=== PATIENT | male | born 1965 | race African-American/Black ===

== ENCOUNTER 2023-05-02 16:06 | Outpatient (REF) | payer MEDICAID, SELFPAY ==
[2023-05-02 17:21] LABS: MANUAL DIFF FLAG NO
[2023-05-02 17:29] LABS: Basophils Percent Auto 0.2 % (0-2); Eosinophils Absolute Auto 0.1 X10*3/uL (0.0-0.4); Eosinophils Percent Auto 0.9 % (0-4); Hematocrit 47.5 % (42.0-52.0); Hemoglobin 15.8 g/dl (14.0-18.0); Imm Gran Abs Auto 0.02 X10*3/uL (0.00-0.03); Imm Gran Pct Auto 0.4 % (0.0-0.4); Lymphocytes Absolute Auto 1.7 X10*3/uL (1.2-4.9); Lymphocytes Percent Auto 30.4 % (20-40); Mean Corpuscular HGB Conc 33.3 g/dl (31.0-36.0); Mean Corpuscular Hemoglobin 30.6 pg (27.0-33.0); Mean Corpuscular Volume 92.1 fL (80.0-98.0); Mean Platelet Volume 9.6 fL (9.4-12.4); Monocytes Absolute Auto 0.4 X10*3/uL (0.1-1.2); Monocytes Percent Auto 6.7 % (2-11); Neutrophils Absolute Auto 3.4 x10*3/uL (2.0-8.3); Neutrophils Percent Auto 61.4 % (45-73); Platelet Count 282 X10*3/uL (160-400); Red Blood Count 5.16 X10*6/uL (4.60-5.80); Red Cell Distribution Width 12.8 % (11.0-16.0); White Blood Count 5.5 X10*3/uL (4.8-10.8)
[2023-05-02 17:55] LABS: Microalbum/Creatinine Ratio Ur 16.1 ug/mg cr (<30)
[2023-05-02 18:10] LABS: Alanine Aminotransferase 34 U/L (0-40); Alkaline Phosphatase 92 U/L (39-117); Anion Gap 12 (12-20); Aspartate Amino Transferase 29 U/L (5-37); Bilirubin Total 0.8 mg/dL (0.0-1.0); Blood Urea Nitrogen 7 mg/dL (9-16); Carbon Dioxide 25 mmol/L (22-29); Chloride 106 mmol/L (96-108); Cholesterol 152 mg/dL (<200); Estimated Glomerular Filt Rate > 60; Glucose Random 115 mg/dL (60-115); HDL Cholesterol 48 mg/dL (>40); LDL Cholesterol Calculated 64 mg/dL (<100); Potassium 3.3 mmol/L (3.3-5.1); Sodium 140 mmol/L (135-145); Total Protein 7.5 g/dL (6.5-8.0); Triglycerides 201 mg/dL (<150)
[2023-05-02 18:13] LABS: TSH reflex Free T4 0.48 uIU/mL (0.32-4.0)
[2023-05-05 04:01] LABS: HIV AB/AG Nonreactive (Nonreactive); HIV Num 1 0.05 S/CO (0.00-0.99); ~HepC Num1 0.18 S/CO (0.00-0.79); ~Hepatitis C Antibody Nonreactive (Nonreactive)
== END 2023-05-02 16:07 | disposition home or self-care (01) ==
LOC: HO.CHCLDS 16:06
PROVIDERS: Visit Provider Family Medicine
DX: Z11.4 Encounter for screening for human immunodeficiency virus [HIV] (principal); E66.9 Obesity, unspecified
CPT/HCPCS: 36415; 80053; 80061; 82043; 82570; 84443; 85025; 86803; 87389

== ENCOUNTER 2023-08-11 17:18 | Outpatient (REF) | payer MEDICAID, SELFPAY ==
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
== END 2023-08-11 17:19 | disposition home or self-care (01) ==
LOC: HO.XRAY 17:18
PROVIDERS: PCP Family Medicine; Visit Provider Family Medicine
DX: M89.8X1 Other specified disorders of bone, shoulder (principal)
CPT/HCPCS: 73000; 73030

== ENCOUNTER 2023-08-15 13:12 | Outpatient (REF) | payer MEDICAID, SELFPAY ==
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
[2023-08-15] MEDS: iohexoL 350 MG/ML 100 ML INFUS..BTL 60 ML IV (13:55)
[2023-08-15 15:36] LABS: Creatinine POC 1.1 mg/dL (0.5-1.4); GFR POC > 60
== END 2023-08-15 13:13 | disposition home or self-care (01) ==
LOC: HO.CT 13:12
PROVIDERS: PCP Family Medicine; Visit Provider Family Medicine
DX: M89.8X1 Other specified disorders of bone, shoulder (principal)
CPT/HCPCS: 70491; 82565; Q9967

== ENCOUNTER 2023-08-21 10:41 | Outpatient (REF) | payer MEDICAID, SELFPAY ==
--- NOTE | ~2023-08-21 | XR_ITS ---
EXAMINATION: XR HAND, RIGHT CLINICAL INFORMATION: Pain in unspecified hand COMPARISON: None available. TECHNIQUE: PA, lateral, and oblique views of the right hand. FINDINGS: There is a comminuted mildly displaced fracture of the distal second metacarpal. Associated soft tissue swelling is noted. The remainder the bones are intact. There is slight widening of the second metacarpophalangeal joint. Nonspecific cystic changes seen within the distal ulna. XR/XR hand RT min 3V IMPRESSION: 1. Comminuted mildly displaced fracture of the distal second metacarpal. 2. Slight widening of the second metacarpophalangeal joint.
--- NOTE | ~2023-08-21 | XR_ITS ---
EXAMINATION: XR KNEE, LEFT CLINICAL INFORMATION: Pain in unspecified knee COMPARISON: None available. TECHNIQUE: AP standing view of both knees and lateral sunrise view of the left knee. FINDINGS: Right knee: No fracture. Joint spaces are maintained. Left knee: No acute fracture. Healed fracture of the visualized portions of the mid to distal femur with partial visualization of intramedullary car. Healed fracture of the lateral tibial plateau. Moderate joint effusion. Joint spaces are maintained. No abnormal soft tissue calcifications. XR/XR knee LT 3V IMPRESSION: 1. No acute fracture or dislocation of the right knee. 2. Healed fractures of the left femur and left lateral tibial plateau. 3. Moderate left knee joint effusion.
== END 2023-08-21 10:42 | disposition home or self-care (01) ==
LOC: HO.HOSX 10:41
PROVIDERS: Visit Provider Physician Assistant
DX: M25.562 Pain in left knee (principal); M79.641 Pain in right hand; S82.142A Displaced bicondylar fracture of left tibia, initial encounter for closed fracture
CPT/HCPCS: 73130; 73562; 99212

== ENCOUNTER 2023-08-21 14:26 | Outpatient (AMB) | payer MEDICAID, SELFPAY ==
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
== END 2023-08-21 17:00 | disposition home or self-care (01) ==
PROVIDERS: PCP Family Medicine; Visit Provider Physician Assistant
DX: S82.142A Displaced bicondylar fracture of left tibia, initial encounter for closed fracture (principal); S62.300A Unspecified fracture of second metacarpal bone, right hand, initial encounter for closed fracture; S62.662A Nondisplaced fracture of distal phalanx of right middle finger, initial encounter for closed fracture; I25.10 Atherosclerotic heart disease of native coronary artery without angina pectoris; M79.605 Pain in left leg
CPT/HCPCS: 99204

== ENCOUNTER 2023-08-21 16:46 | Outpatient (REF) | payer MEDICAID, SELFPAY ==
--- NOTE | ~2023-08-21 | US_ITS ---
EXAMINATION: US VENOUS ULTRASOUND WITH DOPPLER LOWER EXTREMITY, LEFT CLINICAL INFORMATION: Pain and edema COMPARISON: None available. TECHNIQUE: Ultrasound of the deep veins is performed from the hip to the calf with compression sonography and color and pulse Doppler assessment. Spectral analysis with color-flow imaging is performed. FINDINGS: There is normal venous compression and respiratory variation and augmented flow. The visualized common femoral vein, superficial femoral vein, profunda femoral vein, and popliteal vein shows no evidence of deep venous thrombosis. The calf veins are segmentally visualized. There is noncompressible occlusive thrombus seen within the mid peroneal vein. There is no significant popliteal fossa cyst. US/US venous duplex LE IMPRESSION: There is noncompressible occlusive thrombus seen within the mid peroneal vein. This was relayed to Stephie Sparrow from orthopedic surgery and the patient was sent to the emergency department
== END 2023-08-21 16:47 | disposition home or self-care (01) ==
LOC: HO.US 16:46
PROVIDERS: Visit Provider Physician Assistant
DX: S82.142D Displaced bicondylar fracture of left tibia, subsequent encounter for closed fracture with routine healing (principal)
CPT/HCPCS: 73130; 73562; 93971; 99212

== ENCOUNTER 2023-08-21 18:14 | Emergency (ER) | payer MEDICAID, SELFPAY ==
--- NOTE | ~2023-08-21 | XR_ITS ---
EXAMINATION: XR CHEST 7:54 PM CLINICAL INFORMATION: Chest pain and shortness of breath COMPARISON: None available. TECHNIQUE: Frontal view of the chest was obtained. FINDINGS: No significant abnormality is noted involving the heart, lungs, mediastinum, bony thorax or soft tissues. XR/XR chest 1V IMPRESSION: Unremarkable examination.
--- NOTE | ~2023-08-21 | CT_ITS ---
EXAMINATION: CTA CHEST PE STUDY CLINICAL INFORMATION: Reason for Exam CP, SOB, sx w/ DVT today COMPARISON: No pertinent prior studies are available for comparison. TECHNIQUE: Prior to contrast administration, noncontrast localization images were obtained. After the administration of 50 mL of Omnipaque nonionic IV contrast, contiguous thin slice helical images were obtained through the thorax. Reformatted MIP images in the coronal and sagittal planes were obtained at the acquisition workstation. This CT examination was performed using dose optimization techniques as appropriate, variously including the following: *Automated exposure control *Adjustment of mA and/or kV according to patient size (this includes techniques or standardized protocols for targeted exams where dose is matched to indication/reason for exam; i.e. extremities or head) *Use of iterative reconstruction technique DLP: 277 mGy-cm. FINDINGS: The bolus timing on this study was acceptable for visualization of the pulmonary arterial tree. There are no intraluminal pulmonary arterial filling defects present to suggest pulmonary embolism. The lungs are clear. No abnormal pulmonary nodules or masses are appreciated. No significant hilar or mediastinal adenopathy. There is no evidence of pleural effusion or pneumothorax. The heart is normal in size. No evidence of ventricular septal bowing or right heart strain. Great vessels are normal. Otherwise the mediastinum is unremarkable. There is no pericardial effusion or pericardial thickening. Limited evaluation of the upper abdominal viscera demonstrates a partially visualized low-attenuation 5.4 cm right renal cyst. CT/CT angio chest PE protocol IMPRESSION: 1. No evidence for pulmonary emboli. 2. No focal airspace disease. 3. VTE: Negative.
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
[2023-08-21 19:29] VITALS: BP 163/102; PULSE 72; RESP 16; TEMP 36.6; O2SAT 98; BMI 30.5
--- NOTE | 2023-08-21 19:33 | ECG_ITS ---
Test Reason : CHEST PAIN Blood Pressure : / mmHG Vent. Rate : 072 BPM Atrial Rate : 072 BPM P-R Int : 176 ms QRS Dur : 098 ms QT Int : 386 ms P-R-T Axes : 021 068 -07 degrees QTc Int : 422 ms Normal sinus rhythm Normal ECG No previous ECGs available Referred By: Dudley Crockett Electronically Signed By:LIGIA WEBER
[2023-08-21 19:51] LABS: MANUAL DIFF FLAG NO
[2023-08-21 19:56] LABS: Basophils Percent Auto 0.2 % (0-2); Eosinophils Absolute Auto 0.1 X10*3/uL (0.0-0.4); Eosinophils Percent Auto 2.3 % (0-4); Hematocrit 40.3 % (42.0-52.0); Hemoglobin 13.4 g/dl (14.0-18.0); Imm Gran Abs Auto 0.01 X10*3/uL (0.00-0.03); Imm Gran Pct Auto 0.2 % (0.0-0.4); Lymphocytes Absolute Auto 1.9 X10*3/uL (1.2-4.9); Lymphocytes Percent Auto 32.4 % (20-40); Mean Corpuscular HGB Conc 33.3 g/dl (31.0-36.0); Mean Corpuscular Hemoglobin 30.7 pg (27.0-33.0); Mean Corpuscular Volume 92.4 fL (80.0-98.0); Monocytes Absolute Auto 0.4 X10*3/uL (0.1-1.2); Monocytes Percent Auto 6.2 % (2-11); Neutrophils Absolute Auto 3.5 x10*3/uL (2.0-8.3); Neutrophils Percent Auto 58.7 % (45-73); Platelet Count 334 X10*3/uL (160-400); Red Blood Count 4.36 X10*6/uL (4.60-5.80); Red Cell Distribution Width 13.7 % (11.0-16.0)
[2023-08-21 20:05] LABS: Prothrombin Time 12.7 SEC (11.1-13.3)
[2023-08-21 20:10] LABS: Alanine Aminotransferase 36 U/L (0-40); Albumin Level 4.1 g/dL (3.5-5.0); Alkaline Phosphatase 179 U/L (39-117); Anion Gap 12 (12-20); Aspartate Amino Transferase 26 U/L (5-37); Bilirubin Total 0.4 mg/dL (0.0-1.0); Blood Urea Nitrogen 13 mg/dL (9-16); Calcium 9.2 mg/dL (8.4-10.2); Carbon Dioxide 25 mmol/L (22-29); Chloride 109 mmol/L (96-108); Creatinine Clr Calc Pharmacy 69.7; Estimated Glomerular Filt Rate > 60; Glucose Random 106 mg/dL (60-115); Potassium 3.6 mmol/L (3.3-5.1); Sodium 142 mmol/L (135-145); Total Protein 7.7 g/dL (6.5-8.0)
[2023-08-21 20:15] LABS: Troponin-I High Sensitivity 4.1 ng/L (<3.5-35.0)
[2023-08-21] MEDS: iohexoL 350 MG/ML 100 ML INFUS..BTL 65 ML IV (22:23)
[2023-08-21] MEDS: Apixaban 5 MG TABLET 10 MG PO (22:51)
[2023-08-21 23:06] VITALS: BP 162/104; PULSE 77; RESP 18; TEMP 36.6; O2SAT 98
--- NOTE | 2023-08-21 23:07 | PC.NURSE ---
MD Mark aware of pt blood pressure at time of d/c. patient says he has blood pressure meds at home and is due to take his night time dose. no apparent distress at time of d/c. ambulates with steady gait out of tx room.
[2023-08-21 23:09] VITALS: BP 162/104; PULSE 77; RESP 18; TEMP 36.6; O2SAT 98
== END 2023-08-21 23:10 | disposition home or self-care (01) ==
PROVIDERS: Physician Assistant; Emergency Provider Emergency Medicine; PCP Family Medicine
DX: I82.452 Acute embolism and thrombosis of left peroneal vein (principal); I21.4 Non-ST elevation (NSTEMI) myocardial infarction; S82.90XD Unspecified fracture of unspecified lower leg, subsequent encounter for closed fracture with routine healing; V89.2XXD Person injured in unspecified motor-vehicle accident, traffic, subsequent encounter; Z91.148 Patient's other noncompliance with medication regimen for other reason
CPT/HCPCS: 36415; 71045; 71275; 80053; 84484; 85025; 85610; 93005; 99284; Q9967

== ENCOUNTER → 2023-08-21 19:33 | Outpatient (BNV) | payer MEDICAID, SELFPAY | PROVIDERS: Emergency Provider Emergency Medicine; PCP Family Medicine; Visit Provider Internal Medicine | DX: R07.9 Chest pain, unspecified (principal) | CPT/HCPCS: 93010 ==

== ENCOUNTER 2023-08-26 14:19 | Outpatient (REF) | payer MEDICAID, SELFPAY ==
--- NOTE | ~2023-08-26 | CT_ITS ---
EXAMINATION: CT KNEE WITHOUT CONTRAST, LEFT CLINICAL INFORMATION: Left knee pain. Bicondylar tibial fracture. COMPARISON: Left knee radiographs dated 08/21/2023. TECHNIQUE: Contiguous axial CT images of the left knee were obtained without contrast. Multiplanar reformats were provided and reviewed. This CT examination was performed using dose optimization techniques as appropriate, variously including the following: *Automated exposure control *Adjustment of mA and/or kV according to patient size (this includes techniques or standardized protocols for targeted exams where dose is matched to indication/reason for exam; i.e. extremities or head) *Use of iterative reconstruction technique DLP: 128 mGy-cm FINDINGS: Comminuted and displaced lateral tibial plateau fracture with dominant oblique components extending to the lateral cortex where there is cortical step off and a fracture gap measuring up to 0.6 cm anteriorly. There is adjacent periosteal reaction/callus formation. Additional comminuted fracture lines extend through the weightbearing aspect the lateral tibial plateau with the central, nondepressed fracture fragment measuring approximately 3.7 x 4.6 cm (AP x ML). There are extensions of the fracture line to the medial tibial spine articular surface as well as the anterior and posterior cortices. The largest fracture gap along the articular surface measures up to 0.5 cm in ML dimension anteriorly. Findings are consistent with a type II fracture as per the Schatzker classification system. No acute femoral or patellar fracture. Partially visualized, healed distal femoral fracture and the distal femoral ORIF without evidence of hardware complication. No significant joint space narrowing or marginal osteophytes. No concerning lytic or blastic osseous lesion. Moderate lipohemarthrosis. Anterior subcutaneous edema. The visualized muscles and tendons are grossly intact; however, evaluation significantly limited on CT examination. CT/CT knee LT wo IV con IMPRESSION: 1. Comminuted and displaced lateral tibial plateau fracture with dominant oblique components extending to the lateral cortex where there is cortical step off and a fracture gap measuring up to 0.6 cm anteriorly. Additional comminuted fracture lines extend through the weightbearing aspect of the lateral tibial plateau with the largest fracture gap measuring up to 0.5 cm along the articular surface. Findings are consistent with a type II fracture as per the Schatzker classification system. 2. Moderate lipohemarthrosis. Anterior subcutaneous edema. 3. Partially visualized, healed distal femoral fracture and ORIF without evidence of hardware complication.
== END 2023-08-26 14:20 | disposition home or self-care (01) ==
LOC: HO.CT 14:19
PROVIDERS: Visit Provider Physician Assistant
DX: S82.142A Displaced bicondylar fracture of left tibia, initial encounter for closed fracture (principal)
CPT/HCPCS: 73700

== ENCOUNTER 2023-09-05 10:29 | Outpatient (AMB) | payer MEDICAID, SELFPAY ==
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
== END 2023-09-05 11:19 | disposition home or self-care (01) ==
LOC: HO.HOS 10:29
PROVIDERS: PCP Family Medicine; Visit Provider Physician Assistant
DX: S82.142A Displaced bicondylar fracture of left tibia, initial encounter for closed fracture (principal); S62.300A Unspecified fracture of second metacarpal bone, right hand, initial encounter for closed fracture; S62.662A Nondisplaced fracture of distal phalanx of right middle finger, initial encounter for closed fracture; I25.10 Atherosclerotic heart disease of native coronary artery without angina pectoris; M79.605 Pain in left leg; Z86.718 Personal history of other venous thrombosis and embolism
CPT/HCPCS: 99214

== ENCOUNTER → 2023-09-05 10:29 | Outpatient (BNVA) | payer MEDICAID, SELFPAY | PROVIDERS: PCP Family Medicine; Visit Provider Physician Assistant | DX: S82.142D Displaced bicondylar fracture of left tibia, subsequent encounter for closed fracture with routine healing (principal); S62.300D Unspecified fracture of second metacarpal bone, right hand, subsequent encounter for fracture with routine healing; S62.662D Nondisplaced fracture of distal phalanx of right middle finger, subsequent encounter for fracture with routine healing; M79.605 Pain in left leg; I25.10 Atherosclerotic heart disease of native coronary artery without angina pectoris; Z86.718 Personal history of other venous thrombosis and embolism; Z79.01 Long term (current) use of anticoagulants | CPT/HCPCS: 99212 ==

== ENCOUNTER 2023-10-07 07:49 | Outpatient (REF) | payer MEDICAID, SELFPAY | END 2023-10-07 07:50 | disposition home or self-care (01) | LOC: HO.HOSX 07:49 | PROVIDERS: Visit Provider Physician Assistant | DX: Z13.89 Encounter for screening for other disorder (principal) ==

== ENCOUNTER 2023-11-20 10:28 | Outpatient (REF) | payer MEDICAID, SELFPAY ==
--- NOTE | ~2023-11-20 | XR_ITS ---
EXAMINATION: XR KNEE, LEFT CLINICAL INFORMATION: Knee pain COMPARISON: X-ray 08/21/2023 TECHNIQUE: AP bilateral knees one view. Left knee 2 views. FINDINGS: Left knee: Anatomic alignment. Redemonstrated is healed fracture of the lateral tibial plateau. Redemonstrated is an intramedullary car in the distal femur, with a healed distal femoral fracture. Knee joint spaces are maintained. No acute fractures identified. No significant effusion. Right knee: Single frontal view. No acute fracture. Joint spaces are maintained. XR/XR knee LT 3V IMPRESSION: Left knee: Healed fractures of the left femur and lateral tibial plateau. No new acute fractures. Right knee: No acute findings. Study is assigned dictation on December 11, 2023
== END 2023-11-20 10:29 | disposition home or self-care (01) ==
LOC: HO.HOSX 10:28
PROVIDERS: Visit Provider Physician Assistant
DX: S82.142D Displaced bicondylar fracture of left tibia, subsequent encounter for closed fracture with routine healing (principal); S62.300D Unspecified fracture of second metacarpal bone, right hand, subsequent encounter for fracture with routine healing; S62.662D Nondisplaced fracture of distal phalanx of right middle finger, subsequent encounter for fracture with routine healing; M79.605 Pain in left leg; I25.10 Atherosclerotic heart disease of native coronary artery without angina pectoris; Z86.718 Personal history of other venous thrombosis and embolism; Z79.01 Long term (current) use of anticoagulants
CPT/HCPCS: 73562; 99212

== ENCOUNTER 2023-11-20 10:59 | Outpatient (AMB) | payer MEDICAID, SELFPAY ==
[2023-11-20 11:16] VITALS: BMI 30.5
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
== END 2023-11-20 11:31 | disposition home or self-care (01) ==
LOC: HO.HOS 10:59
PROVIDERS: PCP Family Medicine; Visit Provider Physician Assistant
DX: S82.142A Displaced bicondylar fracture of left tibia, initial encounter for closed fracture (principal); S62.300A Unspecified fracture of second metacarpal bone, right hand, initial encounter for closed fracture; S62.662A Nondisplaced fracture of distal phalanx of right middle finger, initial encounter for closed fracture; I25.10 Atherosclerotic heart disease of native coronary artery without angina pectoris; M79.605 Pain in left leg; Z86.718 Personal history of other venous thrombosis and embolism
CPT/HCPCS: 99213

== ENCOUNTER 2023-12-29 11:04 | Outpatient (REF) | payer MEDICAID, SELFPAY ==
[2023-12-29 14:37] LABS: MANUAL DIFF FLAG NO
[2023-12-29 14:45] LABS: Basophils Percent Auto 0.4 % (0-2); Eosinophils Absolute Auto 0.1 X10*3/uL (0.0-0.4); Eosinophils Percent Auto 1.9 % (0-4); Hemoglobin 13.7 g/dl (14.0-18.0); Imm Gran Abs Auto 0.02 X10*3/uL (0.00-0.03); Imm Gran Pct Auto 0.4 % (0.0-0.4); Lymphocytes Absolute Auto 1.7 X10*3/uL (1.2-4.9); Lymphocytes Percent Auto 36.8 % (20-40); Mean Corpuscular HGB Conc 33.4 g/dl (31.0-36.0); Mean Corpuscular Hemoglobin 30.4 pg (27.0-33.0); Mean Corpuscular Volume 91.1 fL (80.0-98.0); Mean Platelet Volume 9.5 fL (9.4-12.4); Monocytes Absolute Auto 0.4 X10*3/uL (0.1-1.2); Monocytes Percent Auto 8.8 % (2-11); Neutrophils Absolute Auto 2.4 x10*3/uL (2.0-8.3); Neutrophils Percent Auto 51.7 % (45-73); Platelet Count 347 X10*3/uL (160-400); Red Cell Distribution Width 13.3 % (11.0-16.0); White Blood Count 4.7 X10*3/uL (4.8-10.8)
[2023-12-29 15:15] LABS: Alanine Aminotransferase 49 U/L (0-40); Albumin Level 4.1 g/dL (3.5-5.0); Alkaline Phosphatase 91 U/L (39-117); Anion Gap 12 (12-20); Aspartate Amino Transferase 27 U/L (5-37); Bilirubin Total 0.8 mg/dL (0.0-1.0); Blood Urea Nitrogen 9 mg/dL (9-16); Calcium 9.4 mg/dL (8.4-10.2); Carbon Dioxide 24 mmol/L (22-29); Chloride 107 mmol/L (96-108); Cholesterol 155 mg/dL (<200); Estimated Glomerular Filt Rate > 60; Glucose Random 93 mg/dL (60-115); HDL Cholesterol 45 mg/dL (>40); LDL Cholesterol Calculated 73 mg/dL (<100); Potassium 3.7 mmol/L (3.3-5.1); Sodium 139 mmol/L (135-145); TSH reflex Free T4 0.45 uIU/mL (0.32-4.0); Total Protein 7.6 g/dL (6.5-8.0); Triglycerides 189 mg/dL (<150)
== END 2023-12-29 11:05 | disposition home or self-care (01) ==
LOC: HO.CHCLDS 11:04
PROVIDERS: Visit Provider Family Medicine
DX: I42.9 Cardiomyopathy, unspecified (principal); I48.21 Permanent atrial fibrillation; I10 Essential (primary) hypertension
CPT/HCPCS: 36415; 80053; 80061; 84443; 85025

== ENCOUNTER 2024-05-04 12:00 | Emergency (ER) | payer MEDICARE, SELFPAY ==
--- NOTE | 2024-05-04 12:42 | ED_ITS ---
HPI - General Adult General Chief complaint: Abdominal Pain Stated complaint: Abd pain 5 days Related Data Home Medications ?Medication ?Instructions ?Recorded ?Confirmed amiodarone 200 mg tablet 200 mg PO QAM 11/20/23 carvedilol 12.5 mg tablet 12.5 mg PO Q12H 11/20/23 clopidogrel 75 mg tablet 75 mg PO QAM 11/20/23 folic acid 1 mg tablet 1 mg PO QAM 11/20/23 furosemide 40 mg tablet 40 mg PO QAM 11/20/23 losartan 25 mg tablet 25 mg PO BID 11/20/23 sennosides 8.6 mg tablet (senna) 17.2 mg PO BEDTIME 11/20/23 Allergies Allergy/AdvReac Type Severity Reaction Status Date / Time aspirin Allergy Hives Verified 05/04/24 12:45 [facility] Past Medical History Medical History DVT (deep venous thrombosis) Tibial plateau fracture, left Coronary artery disease Social History Social History Alcohol intake: current Alcohol intake frequency: holidays/special occasions only Patient Tobacco Use Status: Never used Tobacco Substance Use Type: Marijuana Advance Directives: No Advance Directives Information Provided: Yes Current occupational status: unemployed Current occupation: right hand dominant Physical Exam ED Vital Signs: BMI result Body Mass Index 32.0 Course Course Course Narrative: This is a rapid medical exam performed by Amish Martins NP: Additional HPI, ROS, PE not included below will be deferred to primary provider. Patient is a 59-year-old male with history of CAD, DVT, in the past, congenital single kidney presenting with complaint of abdominal pain for the past 5 days. Pain is LLQ, also reports diarrhea. Plan: labs, UA Medical Decision Making Lab Data 05/04/24 12:53 05/04/24 12:53 Labs: Lab Results 05/04/24 Range/Units 12:53 WBC 5.0 (4.8-10.8) X10*3/uL RBC 5.14 (4.60-5.80) X10*6/uL Hgb 15.6 (14.0-18.0) g/dl Hct 46.8 (42.0-52.0) % MCV 91.1 (80.0-98.0) fL MCH 30.4 (27.0-33.0) pg MCHC 33.3 (31.0-36.0) g/dl RDW 12.6 (11.0-16.0) % Plt Count 265 (160-400) X10*3/uL MPV 9.1 L (9.4-12.4) fL Immature Gran % (Auto) 0.2 (0.0-0.4) % Neut % (Auto) 54.3 (45-73) % Lymph % (Auto) 36.1 (20-40) % Mcintosh % (Auto) 7.4 (2-11) % Eos % (Auto) 1.8 (0-4) % Baso % (Auto) 0.2 (0-2) % Lymph # (Auto) 1.8 (1.2-4.9) X10*3/uL Mcintosh # (Auto) 0.4 (0.1-1.2) X10*3/uL Eos # (Auto) 0.1 (0.0-0.4) X10*3/uL Baso # (Auto) 0.0 (0.0-0.2) X10*3/uL Abs Immat Gran (auto) 0.01 (0.00-0.03) X10*3/uL Absolute Neuts (auto) 2.7 (2.0-8.3) x10*3/uL Absolute Nucleated RBC 0.000 (0.0-0.012) X10*3/uL Nucleated RBC % (auto) 0.0 (0.0-0.2) /100WBC PT 11.6 (10.9-12.4) SEC INR 1.0 (0.9-1.1) Sodium 140 (135-145) mmol/L Potassium 4.8 D (3.3-5.1) mmol/L Chloride 110 H (96-108) mmol/L Carbon Dioxide 27 (22-29) mmol/L Anion Gap 8 L (12-20) BUN 12 (9-16) mg/dL Creatinine 0.96 (0.5-1.4) mg/dL Estim Creat Clear Calc 85.8 Estimated GFR > 60 Random Glucose 101 (60-115) mg/dL Calcium 9.3 (8.4-10.2) mg/dL Magnesium 2.3 (1.6-2.6) mg/dL Total Bilirubin 0.5 (0.0-1.0) mg/dL AST 32 (5-37) U/L ALT 45 H (0-40) U/L Alkaline Phosphatase 92 (39-117) U/L Total Protein 8.2 H (6.5-8.0) g/dL Albumin 4.3 (3.5-5.0) g/dL Lipase 27 (8-78) U/L Urine Color Yellow Urine Appearance Clear Urine pH 6.0 (5.0-9.0) Ur Specific [place] 1.020 (1.005-1.025) Urine Protein Negative (Neg-Trace) mg/dL Urine Glucose (UA) Negative (Negative) mg/dL Urine Ketones Negative (Negative) mg/dL Urine Blood Negative (Negative) Urine Nitrite Negative (Negative) Ur Leukocyte Esterase Trace H (Negative) Urine RBC 0-2 (0-2) /HPF Urine WBC 0-5 (0-5) /HPF Ur Squamous Epith Cells 3-5 (0-2) /HPF Urine Bacteria None Seen (None Seen) Hyaline Casts 0-2 (0-2) /LPF Ethyl Alcohol < 10 mg/dL Discharge Plan Discharge Clinical Impression: Eloped from emergency department Patient Disposition: Left W/O Completing Treatment Prescriptions: No Action amiodarone 200 mg tablet 200 mg PO QAM carvedilol 12.5 mg tablet 12.5 mg PO Q12H losartan 25 mg tablet 25 mg PO BID folic acid 1 mg tablet 1 mg PO QAM furosemide 40 mg tablet 40 mg PO QAM clopidogrel 75 mg tablet 75 mg PO QAM sennosides [senna] 8.6 mg tablet 17.2 mg PO BEDTIME Discharge Date/Time: 05/04/24 19:39
[2024-05-04 12:43] VITALS: BP 149/107; PULSE 68; RESP 18; TEMP 36.8; O2SAT 98; BMI 32.0
[2024-05-04 12:59] LABS: MANUAL DIFF FLAG NO
[2024-05-04 13:00] LABS: Basophils Percent Auto 0.2 % (0-2); Eosinophils Absolute Auto 0.1 X10*3/uL (0.0-0.4); Eosinophils Percent Auto 1.8 % (0-4); Hematocrit 46.8 % (42.0-52.0); Hemoglobin 15.6 g/dl (14.0-18.0); Imm Gran Abs Auto 0.01 X10*3/uL (0.00-0.03); Imm Gran Pct Auto 0.2 % (0.0-0.4); Lymphocytes Absolute Auto 1.8 X10*3/uL (1.2-4.9); Lymphocytes Percent Auto 36.1 % (20-40); Mean Corpuscular HGB Conc 33.3 g/dl (31.0-36.0); Mean Corpuscular Hemoglobin 30.4 pg (27.0-33.0); Mean Corpuscular Volume 91.1 fL (80.0-98.0); Mean Platelet Volume 9.1 fL (9.4-12.4); Monocytes Absolute Auto 0.4 X10*3/uL (0.1-1.2); Monocytes Percent Auto 7.4 % (2-11); Neutrophils Absolute Auto 2.7 x10*3/uL (2.0-8.3); Neutrophils Percent Auto 54.3 % (45-73); Platelet Count 265 X10*3/uL (160-400); Red Blood Count 5.14 X10*6/uL (4.60-5.80); Red Cell Distribution Width 12.6 % (11.0-16.0)
[2024-05-04 13:04] LABS: Appearance Urine Clear; Color Urine Yellow; Glucose Urine UA Negative (Negative); Leukocyte Esterase Urine Trace (Negative); Nitrite Urine Negative (Negative); UMIC TRIGGER UACC YES; Urine Blood Negative (Negative); Urine Ketones Negative (Negative); Urine Protein Negative (Neg-Trace)
[2024-05-04 13:07] LABS: Prothrombin Time 11.6 SEC (10.9-12.4)
[2024-05-04 13:09] LABS: Bacteria Urine None Seen (None Seen); Hyaline Casts Urine 0-2 /LPF (0-2); RBC Urine 0-2 /HPF (0-2); WBC Urine 0-5 /HPF (0-5)
[2024-05-04 13:19] LABS: Alanine Aminotransferase 45 U/L (0-40); Albumin Level 4.3 g/dL (3.5-5.0); Alkaline Phosphatase 92 U/L (39-117); Anion Gap 8 (12-20); Aspartate Amino Transferase 32 U/L (5-37); Bilirubin Total 0.5 mg/dL (0.0-1.0); Blood Urea Nitrogen 12 mg/dL (9-16); Calcium 9.3 mg/dL (8.4-10.2); Carbon Dioxide 27 mmol/L (22-29); Chloride 110 mmol/L (96-108); Creatinine Clr Calc Pharmacy 85.8; Estimated Glomerular Filt Rate > 60; Ethanol < 10 mg/dL; Glucose Random 101 mg/dL (60-115); Lipase 27 U/L (8-78); Magnesium 2.3 mg/dL (1.6-2.6); Potassium 4.8 mmol/L (3.3-5.1); Sodium 140 mmol/L (135-145); Total Protein 8.2 g/dL (6.5-8.0)
--- NOTE | 2024-05-04 19:32 | PC.NURSE ---
no answer when called from at 193
== END 2024-05-04 19:39 | disposition left against medical advice (07) ==
PROVIDERS: Registered Nurse Emergency; Emergency Provider Emergency Medicine; PCP Family Medicine
DX: R10.2 Pelvic and perineal pain (principal); Z79.899 Other long term (current) drug therapy; Z51.81 Encounter for therapeutic drug level monitoring
CPT/HCPCS: 36415; 80053; 80307; 81001; 81003; 83690; 83735; 85025; 85610; 99282; 99283